=== PATIENT | female | born 1945 | race Caucasian/White ===

== ENCOUNTER 2020-05-07 13:34 | Outpatient (RCR) | payer MEDICARE, SELFPAY | END 2020-05-21 23:59 | disposition home or self-care (01) | LOC: SPT 13:34 | PROVIDERS: PCP Family Medicine; Referring Provider Family Medicine; Visit Provider Family Medicine | DX: M51.06 Intervertebral disc disorders with myelopathy, lumbar region (principal) | CPT/HCPCS: 97110; 97161 ==

== ENCOUNTER 2020-05-22 06:00 | Outpatient (RCR) | payer MEDICARE, SELFPAY | END 2020-06-01 23:00 | disposition home or self-care (01) | LOC: SPT 06:00 | PROVIDERS: PCP Family Medicine; Referring Provider Family Medicine; Visit Provider Family Medicine | DX: M51.06 Intervertebral disc disorders with myelopathy, lumbar region (principal) | CPT/HCPCS: 97110 ==

== ENCOUNTER 2023-07-09 07:31 | Outpatient (CLI) | payer MEDICARE, SELFPAY ==
--- NOTE | 2023-07-09 08:00 | CT_ITS ---
WS: [id number] CT LUMBAR SPINE TECHNIQUE: Noncontrast CT of the lumbar spine with coronal and sagittal reformatted images. CLINICAL INFORMATION: progression of pain and disability since prior exam 2019 COMPARISON: None. DLP: 758.[address] scans at [facility] use at least one of these dose optimization techniques: automated e xposure control; mA and/or kV adjustment per patient size (includes targeted exams where dose is matc hed to clinical indication); or iterative reconstruction. FINDINGS: Mild S shaped lumbar curve. No acute appearing compression fractures. Osteopenia. Grade 1 anterolisth esis L4 on L5 measuring 6 mm. Vacuum disc phenomenon with disc space narrowing L2-3 L3-4 and L4-5. Fusiform infrarenal abdominal or aneurysm 2.2 x 2.4 x 4.5 cm AP by transverse by craniocaudal. Partia lly visualized LEFT adrenal gland thickening. L1-L2: Mild disc bulging with narrowing of the subarticular recess bilaterally. Moderate facet arthro ghulam with ligamentum flavum hypertrophy. Mild central canal stenosis. L2-L3: Vacuum disc phenomenon with disc desiccation. Mild disc bulge and osteophytic ridging. Mild ce ntral canal stenosis. Impingement on the traversing L3 nerve roots. Moderate facet arthropathy. Moder ate LEFT foraminal narrowing impinges the exiting LEFT L2 nerve root. L3-L4: Vacuum disc phenomenon. Disc osteophyte complex with slight narrowing of the subarticular rece ss bilaterally. Moderate facet arthropathy. Mild RIGHT greater than LEFT foraminal narrowing. Mild ce ntral canal stenosis. L4-L5: Grade 1 anterolisthesis. Disc osteophyte complex with severe central canal stenosis. Moderate facet arthropathy with ligamentum flavum hypertrophy. Severe RIGHT and moderate LEFT foraminal narrow ing. L5-S1: Mild annular bulging. Mild facet arthropathy. Spinal canal and foramen are patent. Visualized pelvic bony structures: Normal. Paravertebral soft tissues: Normal. IMPRESSION: 1. Grade 1 anterolisthesis L4 on L5 with severe central canal stenosis 2. Severe RIGHT L4-5 foraminal narrowing. 3. Moderate LEFT L2-3 foraminal narrowing with impingement of the exiting LEFT L2 nerve root. 4. Mild central canal stenosis L1-L2, L2-L3, and L3-L4. 5. Fusiform infrarenal abdominal arctic aneurysm 2.2 x 2.4 x 4.5 cm AP by transverse by craniocaudal .
== END 2023-07-09 07:32 | disposition home or self-care (01) ==
LOC: RAD 07:32
PROVIDERS: PCP Family Medicine; Visit Provider Family Medicine
DX: M51.06 Intervertebral disc disorders with myelopathy, lumbar region (principal); M48.061 Spinal stenosis, lumbar region without neurogenic claudication; I71.43 Infrarenal abdominal aortic aneurysm, without rupture
CPT/HCPCS: 72131

== ENCOUNTER → 2023-07-23 08:40 | Outpatient (BNVA) | payer MEDICARE, SELFPAY | PROVIDERS: PCP Family Medicine; Referring Provider Family Medicine; Visit Provider Orthopaedic Surgery | DX: M51.06 Intervertebral disc disorders with myelopathy, lumbar region (principal); M43.16 Spondylolisthesis, lumbar region; M54.9 Dorsalgia, unspecified | CPT/HCPCS: 72100; 99204 ==

== ENCOUNTER 2023-08-20 06:50 | Outpatient (CLI) | payer MEDICARE, SELFPAY ==
--- NOTE | 2023-08-20 07:15 | MR_ITS ---
WS: [id number] MRI LUMBAR SPINE NONCONTRAST HISTORY: lumbar pain COMPARISON: CT 07/09/2023 TECHNIQUE: Sagittal and axial multisequence imaging is submitted. Slight reversal of the normal cervical lordosis centered in the mid cervical spine. Same numbering pattern of the lumbar vertebral body as on 07/09/2023 CT. L4 anterolisthesis by 7 mm with unroofing of the disc. L3 retrolisthesis by 3 mm. No acute fracture o r marrow edema. Mild disc space narrowing and desiccation throughout but greatest at L4-5. Conus terminates normally at L1-2 disc level. L1-L2: Mild annular disc bulging with facet joint arthritis. Mild bilateral foraminal stenosis and young barticular recess and central stenosis L2-L3: Marked facet arthritis. Mild osteophytic ridging. Disc and osteophyte encroach into the LEFT f oramen causing severe stenosis. Mild RIGHT foraminal and central stenosis. L3-L4: Diffuse annular disc bulging, ligamentum flavum and facet arthritis. Severe central, bilateral subarticular recess and RIGHT foraminal stenosis. Mild LEFT foraminal stenosis L4-L5: Diffuse annular disc bulging, ligamentum flavum and facet arthritis. There is severe central, bilateral subarticular recess and foraminal stenosis. L5-S1: No central stenosis Hyperplastic LEFT adrenal gland. IMPRESSION: 1. Grade 1 anterolisthesis of L4. 2. L4-5: Severe central, bilateral subarticular recess and foraminal stenosis with encroachment upon the L4 and L5 nerve roots bilaterally. 3. L3-4: Severe central, bilateral subarticular recess and RIGHT foraminal stenosis. 4. L2-3: Severe LEFT foraminal stenosis with mild RIGHT and central stenosis. 5. L1-2: Mild bilateral foraminal and subarticular recess and central stenosis.
== END 2023-08-20 06:51 | disposition home or self-care (01) ==
LOC: RAD 06:51
PROVIDERS: PCP Family Medicine; Visit Provider Orthopaedic Surgery
DX: M51.06 Intervertebral disc disorders with myelopathy, lumbar region (principal); M48.061 Spinal stenosis, lumbar region without neurogenic claudication; M43.16 Spondylolisthesis, lumbar region
CPT/HCPCS: 72148

== ENCOUNTER → 2023-09-07 10:02 | Outpatient (BNVA) | payer MEDICARE, SELFPAY | PROVIDERS: PCP Family Medicine; Referring Provider Orthopaedic Surgery; Visit Provider Anesthesiology Pain Medicine | DX: M43.16 Spondylolisthesis, lumbar region; M48.061 Spinal stenosis, lumbar region without neurogenic claudication | CPT/HCPCS: 99204 ==

== ENCOUNTER → 2023-10-06 09:24 | Outpatient (BNVA) | payer MEDICARE, SELFPAY | PROVIDERS: PCP Family Medicine; Visit Provider Anesthesiology Pain Medicine | DX: M43.16 Spondylolisthesis, lumbar region; M48.061 Spinal stenosis, lumbar region without neurogenic claudication | CPT/HCPCS: 99215 ==

== ENCOUNTER → 2023-10-20 12:51 | Outpatient (BNVA) | payer MEDICARE, SELFPAY | PROVIDERS: PCP Family Medicine; Visit Provider Orthopaedic Surgery | DX: M43.16 Spondylolisthesis, lumbar region; M48.061 Spinal stenosis, lumbar region without neurogenic claudication; Z01.812 Encounter for preprocedural laboratory examination | CPT/HCPCS: 80053; 81003; 83036; 85025; 99214 ==

== ENCOUNTER 2023-11-05 10:35 | Observation (INO) | payer MEDICARE, SELFPAY ==
[2023-11-05] VITALS (12 sets, daily range): BP systolic 114–193; BP diastolic 51–91; PULSE 83–106; RESP 15–17; TEMP 36.1–36.6; O2SAT 91–99; BMI 37.8
--- NOTE | 2023-11-05 | XR_ITS ---
WS: [id number] Lumbar spine, C ARM fluoroscopy views, 11/05/2023 Clinical Data: OR pic, PLIF Comparison: Lumbar spine, 07/23/2023 Findings: Dr. Plascencia performed a posterior lumbar fusion. Impression: Posterior lumbar fusion.
--- NOTE | 2023-11-05 06:12 | W.PM.OPSUD ---
Surgery/Procedure H&P Update DATE OF PROCEDURE: November 05, 2023 DATE H&P PERFORMED: 10/28/23 H&P UPDATE INFORMATION: I have reviewed H&P completed within last 30 days, I have examined patient prior to procedure and No changes to prior documentation PREOP DIAGNOSIS: L4-5 spondylolisthesis with lumbar stenosis and neurogenic claudication PLANNED PROCEDURE: Operation Date: 11/05/23 07:00 Proposed Procedures p Posterior Lumbar Interbody Fusion/ L4-L5 , instrumentation, cage , navigation, bone marrow aspiration, allograft, autograft(Not Applicable) - Alfred Plascencia DO
[2023-11-05] MEDS: sodium chloride 0.9% 1,000 ML 30 ML IV (06:22)
[2023-11-05] MEDS: ceFAZolin 2,000 MG in sodium chloride 0.9% (plus) 50 ML 100 MG IV ×2 (07:03→16:28)
--- NOTE | 2023-11-05 07:51 | ANES.PREANE2 ---
Pre-Anesthetic Assessment Height/Weight: Height 1.57 m Weight 93.894 kg Temp Pulse Resp BP Pulse Ox O2 Del Method 97.7 F 106 H 16 193/91 96 Room Air 11/05/23 06:00 11/05/23 06:00 11/05/23 06:00 11/05/23 06:00 11/05/23 06:00 11/05/23 06:00 Preop Diagnosis: L4-5 spondylolisthesis with lumbar stenosis and neurogenic claudication Operation Date: 11/05/23 07:00 Proposed Procedures p Posterior Lumbar Interbody Fusion/ L4-L5 , instrumentation, cage , navigation, bone marrow aspiration, allograft, autograft(Not Applicable) - Alfred Plascencia, DO Familial anesthetic complications: none Was Beta Mildred taken within 24 hours: N/A Was Clonidine taken within 24 hours: N/A Last intake: Intake Last Liquid Date 11/04/23 Last Liquid Time 22:00 Last Solid Date 11/04/23 Last Solid Time 17:00 Social Tobacco and No alcohol Exam alert, oriented x 3 and regular rate & rhythm Airway Submandibular: within normal limits Cervical ROM: within normal limits Mallampati: Class II Dentition: false Pulmonary Chronic Obstructive Pulmonary Disease Metabolic Morbid Obesity Musc/skel Lower Back Pain and Osteoarthritis/DJD Anesthetic Plan ASA status: 3 Anesthesia: General Other: Discussed transfusion and ICU possibility. Medications/Allergies Home Medications Medication Instructions Recorded Confirmed Last Taken Type No Known Home Medications 10/06/23 11/04/23 Unknown History Allergies Allergy/AdvReac Type Severity Reaction Status Date / Time No Known Allergies Allergy Verified 10/28/23 09:20 Current Medications Generic Name Dose Route Start Last Admin Trade Name Maikolq PRN Reason Stop Dose Admin Sodium Chloride 1,000 mls @ 30 mls/hr 11/05/23 05:45 11/05/23 06:22 Sodium Chloride 0.9% IV 11/06/23 05:44 30 mls/hr .Q24H KIP Administration PFS Anesthesia Medical History COPD (chronic obstructive pulmonary disease) Social History Smoking and tobacco/nicotine status: never used tobacco/nicotine Alcohol intake: never Substance/Drug Use: never Data Anesthesia Blood Bank 11/05/23 11/05/23 06:10 06:54 Blood Type Cancelled Cancelled Rho(D) Type Cancelled Cancelled Antibody Screen Cancelled Cancelled Cardiac Studies: No Data to Display
[2023-11-05] MEDS: heparin, porcine 1,000 unit/mL INJ 10 mL 10000 UNIT XX (08:26)
[2023-11-05] MEDS: vancomycin 1,000 MG SDV 1000 MG XX (08:27)
[2023-11-05] MEDS: lidocaine-epi 1% 20 mL INJ INJECTION (08:28)
--- NOTE | 2023-11-05 10:38 | PM.OP ---
Operative Report Date of procedure: November 05, 2023 Pre-op diagnosis: L4-5 spondylolisthesis with lumbar stenosis and neurogenic claudication Post-op diagnosis: same Procedure done: 1. L4/5 Interbody fusion with posterolateral fusion 2. Instrumentation L4/5 3. Cage at L4/5 4. L4/5 laminectomy with facetectomies 5. use of autograft from same incision 6. allograft 7. Bone marrow aspirate from right iliac crest 8. use of computer navigation/stereotactic of spine Surgeon: Alfred Plascencia DO Estimated blood loss (mL): 300 Procedure: 1. L4/5 Interbody fusion with posterolateral fusion 2. Instrumentation L4/5 3. Cage at L4/5 4. L4/5 laminectomy with facetectomies 5. use of autograft from same incision 6. allograft 7. Bone marrow aspirate from right iliac crest 8. use of computer navigation/stereotactic of spine Patient is brought to the operative suite. After undergoing anesthesia, the patient had neuro monitoring attached. Patient was then placed in the prone position on the Christophe table. All areas of impingement were well-padded. Patient was then prepped and draped in the normal sterile fashion. Skin incision was then made over the L 4/5 disc space. Subperiosteal dissection was made out to the transverse processes of L4 and L5. Prior to placing the pedicle screws the [employer] bone marrow aspirate kit was used to aspirate bone marrow aspirate. This was done by using the sharp probe to open up the bone. Aspiration was performed and then the blunt probe was then used to dissect down to through the bone tunnel. An aspirating well drawn back a millimeter approximately 20 cc of bone marrow aspirate was used. Admixed with the allograft and autograft bone that will be used. 2 pins were placed into the right iliac crest. This was for placement of the fiducial. These 2 pins to be later removed at the end of the case. The C-arm was brought in and spun around the patient and the information that was from serum was loaded through the fiducial in the computer. This was used for computer navigated screws. The technique for placing the pedicle screws was to use a drill followed by the gearshift probe linked to computer navigation. followed by the ball probe to feel the superior inferior medial lateral anna of the pedicles. Then placement of the screws linked to computer navigation. Was done at each pedicle. Screws were placed at L4 bilaterally and L5 bilaterally. Next attention was brought to performing the laminectomy ofL4. This was done using the high-speed bur Kerrisons and curettes. Once the lamina was removed and then attention was brought to performing a partial facetectomy on the contralateral side. This was done again using the high-speed bur curettes and Kerrisons. The ligamentum flavum was taken down bilaterally from L4 to L5. Attention was then brought to the facet on the ipsilateral side. The facet was taken down. The L5 nerve was decompressed as it passed around the L5 pedicle. The laminectomy was done for purposes of decompressing the nerve as well as placement of the cage. The L4 nerve was identified as it traversed through the L4/5 foramen. The thecal sac was identified and retracted. The L4/5 disc base was identified. Using a knife the disc base was opened. And then sequential miguel were placed. The first shaver was a 6 and the last shaver was a 7. Using a pituitary and down going curette the endplates were scraped and disc material was removed from the space. Once adequate decompression of the disc base was felt to be had. Osteoamp sponge was packed into the anterior aspect of the disc base. Then a size 8 cage from [employer] was placed after packing osteoamp into the cage. While placing the cage the thecal sac and L5 nerve was protected. C arm was used to ensure that the cages placed in the appropriate position. Attention was then brought to attaching the rods to the screws placed in the L4 bilaterally and L5 bilaterally. Caps were torqued into position. Locking the construct in place. Wound was copiously irrigated and then attention was brought to decorticating the facets and transverse processes laterally. Bone that was taken down from the lamina was used along with osteoamp fibers and sponges were packed into the lateral gutters along the facet joints. This was done bilaterally. Wound was then closed in a layered fashion starting with the thoracolumbar fascia. 0-vicryl was used the sub cutaneous tissue was closed with 2-0 vicryl and skin with 4-0 monocryl. Glue was then used to seal the skin and a steril dressing was applied. Patient was then placed in the supine position. The endotracheal tube was removed and patient was transferred to the PACU in stable condition.
[2023-11-05] MEDS: HYDROcodone-acetaminophen 5-325 mg Tablet PO (11:30)
[2023-11-05] MEDS: lactated ringers 1,000 ML 90 ML IV (13:21)
--- NOTE | 2023-11-05 13:22 | PC.NURSE ---
LR DELAYED D/T NOT HAVING ANY IN STOCK ON FLOOR.
--- NOTE | 2023-11-05 13:27 | ANE.PACU2 ---
Inpatient post-anesthesia follow up: Airway intact: Yes Vital signs: Temperature 97 F Pulse Rate 88 Respiratory Rate 15 Blood Pressure 140/79 Pulse Oximetry 91 Oxygen Delivery Me thod Nasal Cannula Oxygen Flow Rate 8 Fraction of Inspir ed Oxygen Hydration adequate: Yes Nausea and vomiting: No Pain level: 3 Mental status: Baseline
[2023-11-05] MEDS: docusate sodium 100 mg Capsule PO (16:28)
[2023-11-06] VITALS: BP 126/72; PULSE 88; RESP 17; TEMP 36.7; O2SAT 96
[2023-11-06] MEDS: ceFAZolin 2,000 MG in sodium chloride 0.9% (plus) 50 ML 100 MG IV ×2 (00:27→08:46)
[2023-11-06] MEDS: lactated ringers 1,000 ML 90 ML IV (00:27)
[2023-11-06 06:00] VITALS: BP 134/85; PULSE 76; RESP 18; O2SAT 97; BMI 37.8
[2023-11-06 07:32] VITALS: BP 127/76; PULSE 86; RESP 16; TEMP 36.7; O2SAT 96
--- NOTE | 2023-11-06 07:52 | P.DS_ITS ---
Discharge Providers Date of Admission: 11/05/23 10:35 Date of Discharge: November 06, 2023 Attending Provider at Admission: Alfred Plascencia DO Attending Provider at Discharge: Alfred Plascencia DO Primary Care Provider: Jing Ignacio MD Reason for Visit Reason for Visit: M43.16, M54.9 Physical Exam Narrative: Patient doing well up with physical therapy yesterday. Drain had minimal output Urinary Catheter Management: Guzman: Cath Placed During This Visit: yes, but has since been removed by the nurse Reason for Continuing Indwelling Catheter: Decision to DC Catheter Urinary Catheter Date of Insertion: 11/05/23 Urinary Catheter Time of Insertion: 07:20 Date Urinary Catheter Removed: 11/06/23 Time Urinary Catheter Discontinued: 05:28 Discharge Data Studies Completed and Pending Completed Studies During Hospitalization Category Date Time Status XR lumbar spine 2-3V* 42515 Routine Exams 11/05/23 Completed Pending at discharge Category Date Time Status C-arm Fluoroscopy 40246 Routine Exams 11/05/23 05:44 Taken Laboratory Results Blood Type Cancelled 11/05/23 16:16 Rho(D) Type Cancelled 11/05/23 16:16 Antibody Screen Cancelled 11/05/23 16:16 Crossmatch See Detail 11/05/23 16:16 Vitals Last Vital Signs Temp 98.0 F 11/06/23 07:32 Pulse 86 11/06/23 07:32 Resp 16 11/06/23 07:32 BP 127/76 11/06/23 07:32 Pulse Ox 96 11/06/23 07:32 O2 Del Method Room Air 11/06/23 07:32 O2 Flow Rate 8 11/05/23 10:32 Discharge Plan Discharge Patient Disposition: Home Condition: Stable Prescriptions: New hydrocodone-acetaminophen 5-325 mg tablet 1 - 2 tab PO .Q4-6H Qty: 40 0RF No Action No Known Home Medications Discharge Orders: Discharge Order (Routine); Ordered 11/06/23 Ordered By: Alfred Plascencia Referrals: Alfred Plascencia DO [Physician] - 11/20/23 1:30 pm Discharge Diet: Advance as tolerated Discharge Activity: Limit activity as instructed Patient Instructions: Opioid Safety Activity Restrictions/Additional Instructions: Thank you for [facility] for your care! The following is a list of instructions, from your provider, to follow upon your discharge to ensure you have the optimal recovery from your recent injury orsurgery. Follow-up care is a swenson part of your treatment and safety. Be sure to make and go to all appointments, and call your doctor if you are having problems. If you do not already have a follow-up appointment made, call Dr. Plascencia office in the next 1-3 days to make follow up appointment for 1 weeks at [phone]. It is also a good idea to know your test results and keep a list of the medicines you take. Medications will be prescribed for you at your provider's discretion. These medications are to be used as instructed; if they are taken more often that prescribed they will not be refilled early and in most cases will not be refilled at all. > When a refill is needed,you should contact luigi escalante 2-3 business days before your prescription runs out. Medications will NOT be refilled by instructor of education providers after hours! > Many pain medications contain Tylenol (Acetaminophen). Do not consume more than 4,000 mg of Tylenol per day in total with any combination ofmedications. > Pain medications can cause constipation. Please use an over the counter stool softener as directed, while taking pain medications. Consulty our local pharmacist with questions or recommendations on stool softeners. If constipation persists, contact our office or your primary care provider. > While under our care,you are not to receive pain medications or other controlled substances from any other provider unless our office is notified and approves. Any attempts to do so will result in refusal to prescribe any further pain medications and possible dismissal from our practice. ? Your wound and/or dressing should remain clean and dry for 7 days after surgery. On postoperative day 7. We will change the dressing in clinic It is normal for there to be a small amount of discharge (bloody or blood tinged) present from a surgical wound for the first 1-3days. > T ? Showering is permitted, however we ask that you do not take a bath, sit in a whirlpool / Jacuzzi, or go swimming for 1 month. For only the first 2 days after surgery, lt wilt be necessary for you to cover your wound/dressing with plastic and tape to keep it dry. ? Walking is essential for the healing process after surgery. We would like you to slowly advance your walking. This should be done on relatively flat clear ground (inside or out) or can be done on a treadmill. Remember this goal does not have to happen all at once, slowly increase your distance and duration. This can be broken into more more than one walk per day as tolerated. Patients who walk as directed after surgery rarely require Physical Therapy. In the unlikely event this issue arises your provider will direct hospital staff to make the appropriate arrangements. ? No lifting over 5 pounds {a gallon of milk) or bending/twisting until further notice. Each of these activities places an unnecessary amount of stress onto the body and can impede the delicate healing process. > Instead of bending at the waist, keep your back straight and bend at the knees. > Instead of twisting your torso, keep your back straight and turn your entire body with your feet. ? You may sleep in any position which makes you comfortable. Many patients find comfort sleeping in a reclining chair. It is not abnormal to have difficulty sleeping for the first several weeks following your surgery. We recommend trying Benadry! or Tylenol PM as directed to help with your sleeping difficulties. Both medications are over the counter and available withoutprescription. ? NO SMOKING!!! Smoking dramatically increases the probability of developing postoperative wound infections. ? Common complaints after lumbar and/or thoracic spine surgery include, but are not limited to: numbness and/or tingling in the legs, pain around the incision and surrounding tissues, muscle spasms, or stiffness of the middle to low back. Contact our office if these symptoms persist or if an acute change occurs. ? No driving for the first 3-5days, and not while taking narcotics [] until seen at your follow-up appointment and cleared. There are no restrictions for riding on short trips, however if you take a longer trip, arrangements should be made to make regular stops to get out of the vehicle and stretch . ? Swelling is an unfortunate event that will take place with any surgery and is the primary source of your postoperative discomfort. While walking and regular approved activities helps control inflammation, there are additional steps you can take to minimizeswelling. > Place ice over the surgical site and surrounding tissue for twenty minutes, followed by applying a low/medium heat (heating pad) for an additional twenty minutes every 1-2 hours as needed for painrelief. > You may use of over the counter anti-inflammatory medications (Ibuprofen, Motrin, Aleve, Advil, etc) as directed on the package label. These types of medicines wm significantly reduce the amount of discomfort you experience after surgery from swelling. It should be noted that if you have and allergy to any of these medications, or a history of ulcers or kidney disease you should consult you primary care provider prior to starting these medications. Discharge Attestations Time Spent in Discharge Care*: less than 30 min Quality Metrics Clinical Quality Measures [ No reported AMI, CVA or VTE this stay] Coding Level of Care Code Acute Code for Chg Fwd
[2023-11-06] MEDS: docusate sodium 100 mg Capsule PO (08:46)
--- NOTE | 2023-11-06 09:15 | PC.CHAP ---
Pastoral Care Encounter/Spiritual Assessment Type of Contact [] Declined guidance services coordinator visit [] Patient/Family/Request visit [] Outpatient visit [] Follow-up visit [] Physician referral [] Code/Alert [x] Routine visit [] Staff referral [] Actively dying [] Patient sleeping [x] Family support [] [] Out of room [] Palliative care [] [] Receiving care in room [] Pre-surgical visit [] Trauma [] Long length of stay [] ICU visit [] Other: Relational/Emotional Strength [x] Patient feels connected with others/family/visitors/staff [] Distress [] Loneliness/isolation [] Abandonment Spirituality of Patient [x] Person of Damaris [] Attends Jewish of their Damaris [x] Believes in Prayer [] Reads Bible or Spiritism materials [] There are Spiritual issues to be addressed Irrigation Supervisor Interventions [x] Prayer [] Active listening [] Non-anxious presence [x] Spiritual/emotional support [] Crisis/trauma care [] Spiritual counseling [] Bereavement support [] Provided bereavement packet [] Provided Bible/devotional materials [] Provided toy/stuffed animal, coloring book to patient or family member [] Provided Communion [] Anointing/Harper [] Salvation [x] Completed spiritual assessment [] Other: Impact on Illness or Injury [] Angry [] Fearful [] Anxious [] Often cries [] Exhaustion [] Unable to work [] Unable to attend rastafarian [] Unable to walk/stand [] Unable to read [] Unable to drive [] Unable to eat/drink [] Unable to sleep [] Unable to be with family [] Patient intubated [] Other: Summary Time spent with patient 5 min
--- NOTE | 2023-11-06 10:14 | PC.NURSE ---
2 IVs removed. Hemovac removed. Guzman removed by nightshift, p void trial passed. Paperwork completed. All questions answered. Pt discharges from facility.
[2023-11-06 10:15] VITALS: BP 127/76; PULSE 86; RESP 16; TEMP 36.7; O2SAT 96
== END 2023-11-06 10:19 | disposition home or self-care (01) ==
LOC: MEDSURG 13:04
PROVIDERS: Admitting Provider Orthopaedic Surgery; PCP Family Medicine; Visit Provider Orthopaedic Surgery
PROC: (CPT 22612; principal; 2023-11-05 07:00)
DX: M48.062 Spinal stenosis, lumbar region with neurogenic claudication (principal); J44.9 Chronic obstructive pulmonary disease, unspecified; E66.01 Morbid (severe) obesity due to excess calories; Z68.37 Body mass index [BMI] 37.0-37.9, adult
CPT/HCPCS: 20930; 20936; 20939; 22633; 22842; 22853; 61783; 63052; 36415; 51702; 72100; 76000; 97110; 97161; 97530; C1713; G0378; J0690; J1100; J1170; J1644; J2250; J2371; J2405; J2704; J2710; J3010; J3370; J3490; J7030; J7120

== ENCOUNTER → 2023-11-20 13:28 | Outpatient (BNVA) | payer MEDICARE, SELFPAY | PROVIDERS: PCP Family Medicine; Visit Provider Orthopaedic Surgery | DX: M48.061 Spinal stenosis, lumbar region without neurogenic claudication (principal); Z98.1 Arthrodesis status | CPT/HCPCS: 72100; 99024 ==

== ENCOUNTER → 2023-12-24 13:22 | Outpatient (BNVA) | payer MEDICARE, SELFPAY | PROVIDERS: PCP Family Medicine; Visit Provider Orthopaedic Surgery | DX: Z98.1 Arthrodesis status (principal) | CPT/HCPCS: 72100; 99024 ==

== ENCOUNTER → 2024-02-04 12:51 | Outpatient (BNVA) | payer MEDICARE, SELFPAY | PROVIDERS: PCP Family Medicine; Visit Provider Orthopaedic Surgery | DX: Z98.1 Arthrodesis status (principal); M48.061 Spinal stenosis, lumbar region without neurogenic claudication | CPT/HCPCS: 72100; 99024 ==

== ENCOUNTER → 2025-04-10 11:12 | Outpatient (BNVA) | payer MEDICARE, SELFPAY | PROVIDERS: PCP Family Medicine; Visit Provider Family Medicine | DX: J41.0 Simple chronic bronchitis (principal) | CPT/HCPCS: 80053; 85025 ==